=== PATIENT | female | born 1965 | race Two or more races ===

== ENCOUNTER → 2018-11-11 | Outpatient (REF) | payer OTHER ==
[2018-11-11 14:21] LABS: ALBUMIN 3.9 GM/DL (3.2-5.2); ALT/SGPT 21 U/L (12-78); BILIRUBIN,TOTAL 0.4 MG/DL (0.2-1.0); BLOOD UREA NITROGEN 12 MG/DL (7-18); CALCIUM LEVEL 9.3 MG/DL (8.5-10.1); CARBON DIOXIDE LEVEL 29 MEQ/L (21-32); CHLORIDE LEVEL 105 MEQ/L (98-107); CHOLESTEROL LEVEL 189 MG/DL (<200); CREATININE FOR GFR 0.76 MG/DL (0.55-1.30); GLOMERULAR FILTRATION RATE > 60.0 (>51); GLUCOSE, FASTING 82 MG/DL (70-100); HDL CHOLESTEROL 70 MG/DL (>40); LDL CHOLESTEROL 103 MG/DL (<100); NON-HDL-C 119 MG/DL; POTASSIUM SERUM 4.2 MEQ/L (3.5-5.1); SODIUM LEVEL 140 MEQ/L (136-145); TOTAL PROTEIN 6.9 GM/DL (6.4-8.2); TRIGLYCERIDES LEVEL 82 MG/DL (<150)
== END ==
LOC: M SFHCPLAZ 10:57
PROVIDERS: ATTEND Nurse Practitioner Adult Health
DX: E74.39 Other disorders of intestinal carbohydrate absorption (principal); E78.2 Mixed hyperlipidemia
CPT/HCPCS: 36415; 80053; 80061; 83036; 84443; G0463

== ENCOUNTER → 2018-12-27 | Outpatient (REF) | payer OTHER ==
[2018-12-27 17:15] LABS: BLOOD UREA NITROGEN 20 MG/DL (7-18); C REACTIVE PROTEIN QUANTITATIV 0.51 MG/DL (0.00-0.30); CREATININE FOR GFR 0.85 MG/DL (0.55-1.30); GLOMERULAR FILTRATION RATE > 60.0 (>51); RHEUMATOID FACTOR QUANT < 10.0 IU/ML (<15.0)
[2019-01-05 00:07] LABS: ANTINUCLEAR ANTIBODIES DIRECT Negative (Negative); HLA-B27 Negative (.)
== END ==
LOC: M LABDRAW1 15:26
PROVIDERS: ATTEND Physician Assistant
DX: M41.26 Other idiopathic scoliosis, lumbar region (principal)

== ENCOUNTER → 2019-02-15 | Outpatient (CLI) | payer OTHER ==
[~2019-02-15] MED LIST: ALPR0.25 PO; ATOR40TA75 PO; GABA-843 PO; LOSA50TA88 PO; MELO15TA28 PO; PANT40TA3 PO; ROPI0.253 PO; TIZA4CAP6 PO; VENL75CA47 PO; VENTAER INH
--- NOTE | 2019-02-15 17:15 | REP ---
CT lumbar spine: 02/15/2019. Indication: Low back pain. Myelopathy. Comparison: None. Technique: Unenhanced axial CT images of the lumbar spine were obtained with coronal and sagittal reconstructions provided. Findings: The patient is status post sacroiliac joint fixation. Stimulator lead is noted within the left aspect of the sacrum. There is no acute fracture, subluxation or dislocation. No significant spinal canal narrowing is detected by this technique. No lytic or blastic osseous lesions are present. The visualized paraspinal soft tissues are unremarkable with the exception of diffusely increased adipose tissue. Impression: No acute osseous injury of the lumbar spine. Electronically Signed by Gomez Rosa DO 02/15/2019 05:06 P
== END ==
LOC: M RAD 15:40
PROVIDERS: ATTEND Physician Assistant
DX: M47.817 Spondylosis without myelopathy or radiculopathy, lumbosacral region (principal)

== ENCOUNTER → 2019-02-23 | Day surgery (SDC) | payer OTHER ==
[~2019-02-23] VITALS: Ht 149.9 cm; Wt 82.0 kg
[~2019-02-23] MED LIST changes: +LIDOCAINE 1% MDV 20ML VIAL SQ PRN; +LR 1,000 ML IV ONE; +ceFAZolin SOD 2 GM in IV 1 EA IV ONE
[2019-02-23 06:23] VITALS: BP 106/77
== END | disposition home or self-care (01) ==
LOC: M SDC 06:03
PROVIDERS: ATTEND Orthopaedic Surgery
DX: M19.072 Primary osteoarthritis, left ankle and foot (principal); Z53.09 Procedure and treatment not carried out because of other contraindication

== ENCOUNTER 2019-03-21 05:59 | Day surgery (SDC) | payer OTHER ==
[~2019-03-21] VITALS: Ht 149.9 cm; Wt 83.5 kg
[~2019-03-21 05:59] MED LIST changes: -LIDOCAINE 1% MDV 20ML VIAL SQ PRN; -LR 1,000 ML IV ONE; -ceFAZolin SOD 2 GM in IV 1 EA IV ONE
[2019-03-21] MEDS ORDERED: EPINEPHrine INJ 1 MG/ML 1ML VIAL ONE (06:00)
[2019-03-21] MEDS ORDERED: ceFAZolin SOD 2 GM in IV 1 EA IV ONE (06:00)
[2019-03-21] MEDS ORDERED: ROPIvacaine 0.5% 30 ML INJECTION (J2795 PER 1MG) ONE (06:00)
[2019-03-21] MEDS ORDERED: LIDOCAINE 1% MDV 20ML VIAL ONE (06:00)
[2019-03-21] MEDS ORDERED: LR 1,000 ML IV ONE (06:00)
[2019-03-21] MEDS ORDERED: fentaNYL 100 MCG/2 ML INJECTION (J3010) As Ordered ONE (06:50)
[2019-03-21] MEDS ORDERED: MIDAZOLAM INJ 2 MG/2 ML VIAL (J2250) As Ordered ONE ×2 (06:50→07:16)
[2019-03-21] MEDS ORDERED: SCOPOLAMINE 1MG TRANSDERMAL PATCH As Ordered ONE (07:04)
[2019-03-21] MEDS ORDERED: BUPIVACAINE HCL 0.5% 30 ML VIAL As Ordered ONE (07:15)
[2019-03-21] MEDS ORDERED: fentaNYL 250 MCG/5 ML INJECTION (J3010) As Ordered ONE (07:16)
[2019-03-21] MEDS ORDERED: propofoL 200 MG/20 ML VIAL As Ordered ONE (07:16)
[2019-03-21] MEDS ORDERED: ROCURONIUM BROMIDE 50 MG/5 ML VIAL As Ordered ONE (07:17)
[2019-03-21] MEDS ORDERED: LIDOCAINE 2% INJ 100 MG/5 ML SDV (FOR ANES.) As Ordered ONE (07:17)
[2019-03-21] MEDS ORDERED: SCOPOLAMINE 1MG TRANSDERMAL PATCH TOP ONE (08:00)
[2019-03-21] MEDS ORDERED: LACTATED RINGER'S 1000 ML IV ONE (08:00)
[2019-03-21] MEDS ORDERED: METOCLOPRAMIDE INJ 10MG/2ML VIAL (J2765) As Ordered ONE (08:26)
[2019-03-21] MEDS ORDERED: ONDANSETRON 4MG/2ML VIAL (J2405) As Ordered ONE (08:27)
[2019-03-21] MEDS ORDERED: dexameTHASONE 4 MG/ML 1ML VIAL (J1100) As Ordered ONE (08:27)
[2019-03-21] MEDS ORDERED: MIDAZOLAM INJ 2 MG/2 ML VIAL (J2250) IV ONE (08:30)
[2019-03-21] MEDS ORDERED: fentaNYL 100 MCG/2 ML INJECTION (J3010) IV ONE (08:30)
[2019-03-21] MEDS ORDERED: ePHEDrine INJ 50 MG/ML VIAL IV ONE (08:30)
[2019-03-21] MEDS ORDERED: ePHEDrine SULFATE 25 MG/5 ML(5MG/ML) SYRINGE As Ordered ONE (08:30)
[2019-03-21] MEDS ORDERED: PHENYLEPHRINE INJ 10MG/ML VIAL (J2370) As Ordered ONE (08:31)
[2019-03-21] MEDS ORDERED: ACETAMINOPHEN 1000MG 100ML IV BTL (OFIRMEV) (J0131 PER 10MG) As Ordered ONE (09:32)
[2019-03-21] MEDS ORDERED: HYDROmorphone HCL 2 MG/ML 1ML VIAL (J1170) As Ordered ONE (09:38)
[2019-03-21] MEDS ORDERED: ESMOLOL INJ 100MG/10ML VIAL As Ordered ONE (10:31)
[2019-03-21] MEDS ORDERED: oxyCODONE 5MG TAB PO PRN (12:15)
[2019-03-21] MEDS ORDERED: MEPERIDINE INJ 25 MG/ML VIAL (J2175) IV PRN (12:15)
[2019-03-21] MEDS ORDERED: LR 1,000 ML IV SCH ×2 (12:15→12:30)
[2019-03-21] MEDS ORDERED: fentaNYL 100 MCG/2 ML INJECTION (J3010) IV PRN (12:15)
[2019-03-21] MEDS ORDERED: METOCLOPRAMIDE INJ 10MG/2ML VIAL (J2765) IV PRN (12:15)
[2019-03-21] MEDS ORDERED: ONDANSETRON 4MG/2ML VIAL (J2405) IV PRN (12:15)
--- NOTE | 2019-03-21 13:50 | REP ---
FOOT SERIES: NINE VIEWS. HISTORY: C-arm intraprocedural imaging: No comparison images. 78 seconds of fluoroscopy time is reported. FINDINGS: A sequence of nine last image hold, fluoroscopically obtained spot radiographs document midfoot arthrodesis of digits 2, 3, and 4. No laterality markers are visible. Electronically Signed by Mark Beyer MD 03/21/2019 02:50 P
[2019-03-21 15:05] VITALS: BP 131/72
--- NOTE | 2019-03-22 08:18 | RO ---
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 PROCEDURES: 1. Left 1st, 2nd, and 3rd tarsometatarsal joint arthrodesis. 2. Left calcaneal bone graft. 3. Use of the mini C-arm. SURGEON: Dr. Pearl Escobar PATIENT SERVICES REPRESENTATIVE: LAURIE Mancuso ANESTHESIA: General endotracheal with popliteal nerve block. ESTIMATED BLOOD LOSS: 75 mL. COMPLICATIONS: None. CONDITION: Stable in recovery. INDICATION: Corina Meraz is a 54-year-old female who has had longstanding pain due to left midfoot arthritis. She has failed conservative measures. The risks and benefits of surgery were discussed with the patient in detail and include but are not limited to infection, damage to nerves and blood vessels, continued pain and stiffness, need for additional procedures. Informed consent was obtained in the office. DESCRIPTION OF PROCEDURE: Patient was met in the preoperative holding area where her left lower extremity was marked as the correct operative site. She underwent a popliteal nerve block by the anesthesia team. She was then taken to the operating room and placed in the supine position on the operating room table. Bony prominences were well padded. A well-padded tourniquet was placed in the left upper thigh. Left lower extremity was prepped and draped in the normal sterile fashion. She received antibiotics within 60 minutes prior to incision. An official time-out was held where the correct patient, operative site and operative procedure were verified. The leg was exsanguinated with an Esmarch and tourniquet inflated to 250 mmHg. Using the patient's prior scar an incision was made over the first tarsometatarsal (TMT) joint. Care was taken to retract superficial nerves. Interval was developed between the extensor hallucis longus (EHL) and extensor digitorum brevis (EDB). There was fairly significant scar tissue and a large osteophyte. The osteophyte was taken down with a rongeur. The joint was accessed and a Hintermann was used to further gain access to the joint. There was moderate to severe arthritis throughout the joint with little remaining cartilage. This was debrided using a series of osteotomes and curets. Copious was performed. Following this, drilling was performed on both sides of the 1st TMT joint and using a 0.062 wire to gain access to the subchondral bone. After the 1st TMT was prepared, the 2nd TMT was also approached through the same incision. Care was taken to retract the neurovascular bundle throughout the case. The 2nd TMT was also approached. There was moderate arthritis throughout. It was similarly prepared in the same way as the 1st TMT joint with removal of all cartilage and drilling of the subchondral bone. At this point, a second incision was made over the 4th metatarsal and 4th TMT joint. The extensor digitorum longus (EDL) tendon was retracted and the 3rd TMT joint was accessed. Confirmation of the 3rd TMT joint was performed using mini C-arm. The joint was prepared in the same manner as the 1st and 2nd TMT joint. Next, I made an incision laterally over the calcaneal tuberosity. Snap and freer were used to protect the sural nerve and peroneal tendons. Using the 4-0 drill sleeve, I obtained approximately three good plugs of calcaneal bone graft. This was then placed into the 1st, 2nd, and 3rd TMT joint. Following this, the joints were all pinned in place using a 0.062 K-wire. Reduction was confirmed on AP oblique and lateral mini C-arm radiographs. Following this, I placed two 4.0 mm cross screws across the 1st TMT joint. At that time, I did drill in a cannulated manner but then placed solid screws. Placement of the screws was confirmed on AP, lateral, and oblique views. Next, I chose a 15 mm two-hole Claw plate from the [employer] set and this was placed across the 2nd TMT joint using 2.7 mm locking screws. Finally, I placed a 20 mm two-hole Claw plate at the 3rd TMT joint. Again this was secured using 2.7 mm locking screws. Position of the plates in the 2nd and 3rd TMT joint were confirmed on AP oblique and lateral views. Screw size was also confirmed. I did replace one screw at the middle cuneiform, which was slightly long. Then I compressed the 2nd and 3rd TMT joint using the plate compressor. There was good compression through the joints. Following this, copious irrigation was performed. Final x-rays were taken and found to be satisfactory in AP and lateral views. There was good compression across the 1st, 2nd, and 3rd TMT joints and hardware was in satisfactory alignment. At this point, the tourniquet was let down and hemostasis was maintained. Following this, I used a bur to bur two areas over the 1st TMT joint where remaining bone graft was placed. I then also used DBM putty over the dorsal aspect of the 1st, 2nd, and 3rd TMT joints as well. Subcutaneous tissues were closed using #3-0 Vicryl and skin was closed using #3-0 nylon. A well-padded sterile dressing was applied followed by a well-padded splint. Patient was extubated and transferred to the recovery room in stable condition. PLAN: Patient will be non-weightbearing in the left lower extremity for 6-8 weeks. She will be seen in a week for wound check. She will do strict elevation and will be on aspirin for deep venous thrombosis prophylaxis.
== END 2019-03-21 14:50 | disposition home or self-care (01) ==
LOC: M SDC 05:59
PROVIDERS: ATTEND Orthopaedic Surgery
DX: M19.072 Primary osteoarthritis, left ankle and foot (principal); I10 Essential (primary) hypertension; K21.9 Gastro-esophageal reflux disease without esophagitis; G25.81 Restless legs syndrome; E78.2 Mixed hyperlipidemia; R73.02 Impaired glucose tolerance (oral); F41.1 Generalized anxiety disorder; F32.9 Major depressive disorder, single episode, unspecified; J45.909 Unspecified asthma, uncomplicated; Z91.040 Latex allergy status; Z88.2 Allergy status to sulfonamides; Z88.5 Allergy status to narcotic agent; Z79.899 Other long term (current) drug therapy
CPT/HCPCS: 20900; 28730; 76000; C1713; C1762; J0131; J0690; J1100; J1170; J2250; J2370; J2405; J2765; J2795; J3010

== ENCOUNTER → 2019-04-20 | Outpatient (REF) | payer OTHER, MEDICAID | LOC: M LABDRAW1 10:33 | PROVIDERS: ATTEND Physical Medicine & Rehabilitation | DX: M47.897 Other spondylosis, lumbosacral region (principal) ==

== ENCOUNTER → 2019-05-17 | Outpatient (REF) | payer MEDICAID ==
[2019-05-18 10:53] LABS: RUBELLA IgG QUALITATIVE IMMUNE (IMMUNE)
== END ==
LOC: M SFHCPLAZ 11:29
PROVIDERS: ATTEND Nurse Practitioner Adult Health
DX: Z01.84 Encounter for antibody response examination (principal); Z78.9 Other specified health status

== ENCOUNTER → 2019-08-04 | Outpatient (CLI) | payer OTHER, MEDICAID ==
[~2019-08-04] MED LIST changes: +AMLO25TA PO; +ASPI81TA85 PO; +GABA800T4 PO; +MYRB50TA PO
--- NOTE | 2019-08-04 17:21 | REPVR ---
PROCEDURE INFORMATION: Exam: US Duplex Left Lower Extremity Veins, Limited Exam date and time: 08/04/2019 5:08 PM Age: 54 years old Clinical indication: Swelling (edema) of limb; Lower extremity, left; Additional info: Effusion, left foot TECHNIQUE: Imaging protocol: Real-time Duplex ultrasound of the Left Lower Extremity with 2-D cervantes scale, color Doppler flow and spectral waveform analysis with image documentation. Limited exam focused on the left lower extremity veins. COMPARISON: No relevant prior studies available. FINDINGS: Left deep veins: The common femoral, femoral, and popliteal veins are patent without thrombus. Normal Doppler waveforms. Normal compressibility and/or augmentation response. Left superficial veins: Unremarkable. Soft tissues: Unremarkable. IMPRESSION: No evidence of deep vein thrombosis. Electronically signed by: Jian Landaverde On 08/04/2019 17:21:18 PM
== END ==
LOC: M RAD 16:37
PROVIDERS: ATTEND Orthopaedic Surgery
DX: M25.475 Effusion, left foot (principal)

== ENCOUNTER → 2019-08-26 | Outpatient (CLI) | payer OTHER, MEDICAID ==
[2019-08-26 10:49] LABS: PLATELET COUNT, AUTOMATED 351 10^3/uL (150-450)
[2019-08-26 11:00] LABS: PROTHROMBIN TIME 12.9 SECONDS (11.8-14.0)
[2019-08-26 11:01] LABS: PARTIAL THROMBOPLASTIN TIME 31.2 SECONDS (25.0-38.4)
[2019-08-26 11:16] LABS: COLLAGEN EPINEPHRINE 151 SECONDS (74-162)
== END ==
LOC: M LAB 10:11
PROVIDERS: ATTEND Physician Assistant
DX: Z01.812 Encounter for preprocedural laboratory examination (principal); M47.27 Other spondylosis with radiculopathy, lumbosacral region; M51.36 Other intervertebral disc degeneration, lumbar region

== ENCOUNTER → 2019-08-30 | Outpatient (CLI) | payer OTHER, MEDICAID | LOC: M LABSMTC 10:49 | PROVIDERS: ATTEND Physical Medicine & Rehabilitation | DX: Z03.818 Encounter for observation for suspected exposure to other biological agents ruled out (principal); Z11.59 Encounter for screening for other viral diseases ==

== ENCOUNTER → 2019-11-19 | Outpatient (CLI) | payer MEDICAID ==
[~2019-11-19] MED LIST changes: -ASPI81TA85 PO; +ASPI81TA86 PO; +PANT40TA29 PO; -PANT40TA3 PO
== END ==
LOC: M LABSMTC 08:55
PROVIDERS: ATTEND Physical Medicine & Rehabilitation
DX: Z20.828 Contact with and (suspected) exposure to other viral communicable diseases (principal)

== ENCOUNTER → 2020-01-25 | Outpatient (CLI) | payer MEDICAID | LOC: M LABSMTC 10:08 | PROVIDERS: ATTEND Physical Medicine & Rehabilitation | DX: Z01.812 Encounter for preprocedural laboratory examination (principal); Z20.828 Contact with and (suspected) exposure to other viral communicable diseases ==

== ENCOUNTER 2020-05-21 10:43 | Emergency (ER) | payer MEDICAID, OTHER ==
[~2020-05-21] VITALS: Ht 149.9 cm; Wt 84.1 kg
[~2020-05-21 10:43] MED LIST changes: +GABA-282 PO; -GABA-843 PO
[2020-05-21] MEDS ORDERED: DULO1CAP6 PO (11:34)
[2020-05-21] MEDS ORDERED: PREG100C PO (11:34)
[2020-05-21 12:01] LABS: HEMATOCRIT 35.4 % (36.0-47.0); HEMOGLOBIN 11.6 g/dl (12.0-15.5); MEAN CORPUSCULAR HEMOGLOBIN 27.6 pg (27.0-33.0); MEAN CORPUSCULAR HGB CONC 32.8 g/dl (32.0-36.5); MEAN CORPUSCULAR VOLUME 84.3 fl (80.0-96.0); PLATELET COUNT, AUTOMATED 345 10^3/uL (150-450); WHITE BLOOD COUNT 6.3 10^3/uL (4.0-10.0)
[2020-05-21 12:13] LABS: INR 0.92; PROTHROMBIN TIME 12.5 SECONDS (12.5-14.3)
[2020-05-21 12:14] LABS: PARTIAL THROMBOPLASTIN TIME 32.6 SECONDS (24.2-38.5)
[2020-05-21 12:29] VITALS: BP 128/83
== END 2020-05-21 12:39 | disposition home or self-care (01) ==
LOC: M ED 10:43
DX: R22.43 Localized swelling, mass and lump, lower limb, bilateral (principal); S80.10XA Contusion of unspecified lower leg, initial encounter; X58.XXXA Exposure to other specified factors, initial encounter; Y92.9 Unspecified place or not applicable; Y93.9 Activity, unspecified; Y99.9 Unspecified external cause status; I10 Essential (primary) hypertension; K21.9 Gastro-esophageal reflux disease without esophagitis; F41.9 Anxiety disorder, unspecified; F33.9 Major depressive disorder, recurrent, unspecified; Z88.2 Allergy status to sulfonamides; Z88.6 Allergy status to analgesic agent; Z91.048 Other nonmedicinal substance allergy status; Z91.040 Latex allergy status; Z79.899 Other long term (current) drug therapy

== ENCOUNTER → 2020-08-13 | Outpatient (CLI) | payer OTHER, MEDICAID ==
[~2020-08-13] MED LIST changes: +DULO1CAP6 PO; +PREG100C PO
--- NOTE | 2020-08-13 21:03 | ECGEPIP ---
[facility] Test Date: 2020-08-13 Pat Name: KATIE WRIGHT Department: Room: - Gender: Female Drain Layer: efrain : 1965 Requested By: Latrice Presley Order Number: [id number] Reading MD: Charmaine Pink Measurements Intervals [place] Rate: 73 P: 47 [place]: 188 QRS: 20 QRSD: 90 T: 3 QT: 360 QTc: 396 Interpretive Statements Normal sinus rhythm NON-SPECIFIC STT ABNORMALITIES No prior Electronically Signed on 08-13-2020 21:03:10 EDT by Charmaine Pink
== END ==
LOC: M EKG 13:44
PROVIDERS: ATTEND Orthopaedic Surgery
DX: M19.011 Primary osteoarthritis, right shoulder (principal)

== ENCOUNTER → 2020-10-01 | Outpatient (CLI) | payer OTHER, MEDICAID ==
--- NOTE | 2020-10-02 21:55 | ECGEPIP ---
[facility] Test Date: 2020-10-01 Pat Name: KATIE WRIGHT Department: Room: - Gender: Female Director Of Payroll: [place] : 1965 Requested By: Latrice Presley Order Number: [id number] Reading MD: Lucio Chavarria Measurements Intervals [place] Rate: 83 P: 52 [place]: 186 QRS: 6 QRSD: 86 T: 23 QT: 366 QTc: 430 Interpretive Statements Normal sinus rhythm T wave abnormality, consider anterior ischemia Last tracing on 08/13/20 at 13:50 No remarkable changes Electronically Signed on 10-02-2020 21:55:18 EDT by Lucio Chavarria
== END ==
LOC: M EKG 16:36
PROVIDERS: ATTEND Orthopaedic Surgery
DX: M19.011 Primary osteoarthritis, right shoulder (principal)

== ENCOUNTER → 2021-01-16 | Outpatient (REF) | payer OTHER, MEDICAID | LOC: M SFHCPLAZ 16:44 | PROVIDERS: ATTEND Nurse Practitioner Adult Health | DX: L75.0 Bromhidrosis (principal) ==

== ENCOUNTER → 2021-05-17 | Outpatient (CLI) | payer MEDICARE, OTHER ==
[~2021-05-17] MED LIST changes: +LOSA50TA28 PO; -LOSA50TA88 PO
[2021-05-17 11:59] LABS: ALBUMIN 3.6 GM/DL (3.2-5.2); ALT/SGPT 23 U/L (12-78); BILIRUBIN,TOTAL 0.4 MG/DL (0.2-1.0); BLOOD UREA NITROGEN 18 MG/DL (7-18); CALCIUM LEVEL 8.9 MG/DL (8.5-10.1); CARBON DIOXIDE LEVEL 27 MEQ/L (21-32); CHLORIDE LEVEL 109 MEQ/L (98-107); CHOLESTEROL LEVEL 224 MG/DL (<200); CHOLESTEROL RISK RATIO 3.796 (<5); CREATININE FOR GFR 0.67 MG/DL (0.55-1.30); GLOMERULAR FILTRATION RATE > 60.0 (>51); GLUCOSE, FASTING 90 MG/DL (70-100); HDL CHOLESTEROL 59 MG/DL (>40); LDL CHOLESTEROL 148 MG/DL (<100); NON-HDL-C 165 MG/DL; POTASSIUM SERUM 4.5 MEQ/L (3.5-5.1); SODIUM LEVEL 141 MEQ/L (136-145); THYROID STIMULATING HORMONE 0.457 uIU/ML (0.358-3.740); TOTAL PROTEIN 6.8 GM/DL (6.4-8.2); TRIGLYCERIDES LEVEL 86 MG/DL (<150)
[2021-05-17 12:03] LABS: HEMOGLOBIN A1c 5.7 %
== END ==
LOC: M PLALAB 08:52
PROVIDERS: ATTEND Nurse Practitioner Adult Health
DX: E74.39 Other disorders of intestinal carbohydrate absorption (principal); E78.2 Mixed hyperlipidemia; Z13.29 Encounter for screening for other suspected endocrine disorder; I10 Essential (primary) hypertension; Z79.899 Other long term (current) drug therapy

== ENCOUNTER → 2021-08-14 | Outpatient (CLI) | payer MEDICARE, OTHER | LOC: M RAD 08:46 | PROVIDERS: ATTEND Registered Nurse Emergency | DX: T83.110A Breakdown (mechanical) of urinary electronic stimulator device, initial encounter (principal) ==

== ENCOUNTER 2021-08-24 22:46 | Emergency (ER) | payer MEDICARE, OTHER ==
[~2021-08-24] VITALS: Ht 149.9 cm; Wt 77.0 kg
[2021-08-25] MEDS ORDERED: KETOROLAC 30 MG/ML 1ML VIAL IM ONE (07:10)
[2021-08-25] MEDS ORDERED: methocarbamoL 500 MG TAB PO ONE (07:10)
[2021-08-25 09:10] VITALS: BP 118/79
== END 2021-08-25 09:11 | disposition home or self-care (01) ==
LOC: M ED 22:46
DX: S39.012A Strain of muscle, fascia and tendon of lower back, initial encounter (principal); W01.0XXA Fall on same level from slipping, tripping and stumbling without subsequent striking against object, initial encounter; M51.16 Intervertebral disc disorders with radiculopathy, lumbar region; E78.5 Hyperlipidemia, unspecified; F41.9 Anxiety disorder, unspecified; F32.A Depression, unspecified; J45.909 Unspecified asthma, uncomplicated; K21.9 Gastro-esophageal reflux disease without esophagitis; I10 Essential (primary) hypertension; Z79.51 Long term (current) use of inhaled steroids; Z79.899 Other long term (current) drug therapy; Z88.2 Allergy status to sulfonamides; Z91.048 Other nonmedicinal substance allergy status; Z91.040 Latex allergy status; Y93.01 Activity, walking, marching and hiking; Y99.9 Unspecified external cause status; Y92.410 Unspecified street and highway as the place of occurrence of the external cause
CPT/HCPCS: 72131; 96372; 99283; J1885

== ENCOUNTER → 2021-08-28 | Outpatient (CLI) | payer MEDICARE, OTHER | LOC: M PLALAB 15:55 | PROVIDERS: ATTEND Physician Assistant | DX: M25.532 Pain in left wrist (principal); W19.XXXA Unspecified fall, initial encounter; R07.81 Pleurodynia ==

== ENCOUNTER → 2022-04-16 | Outpatient (CLI) | payer MEDICARE ==
[2022-04-16 13:12] LABS: BASO % 0.5 % (0.0-1.0); EOS # 0.3 10^3/uL (0.0-0.5); EOS % 4.1 % (0.0-3.0); HEMATOCRIT 37.3 % (36.0-47.0); HEMOGLOBIN 12.1 g/dl (12.0-15.5); LYMPH # 3.5 10^3/uL (1.5-5.0); LYMPH % 47.6 % (24.0-44.0); MEAN CORPUSCULAR HEMOGLOBIN 27.8 pg (27.0-33.0); MEAN CORPUSCULAR HGB CONC 32.4 g/dl (32.0-36.5); MEAN CORPUSCULAR VOLUME 85.6 fl (80.0-96.0); MONO # 0.5 10^3/uL (0.0-0.8); MONO % 6.7 % (2.0-8.0); NEUTROPHILS % 40.8 % (36.0-66.0); PLATELET COUNT, AUTOMATED 413 10^3/uL (150-450); RED BLOOD COUNT 4.36 10^6/uL (4.00-5.40); WHITE BLOOD COUNT 7.4 10^3/uL (4.0-10.0)
[2022-04-16 13:21] LABS: HEMOGLOBIN A1c 5.4 % (4.0-6.0)
[2022-04-16 13:31] LABS: ERYTHROCYTE SEDIMENTATION RATE 11 mm/hr (0-30)
[2022-04-16 13:46] LABS: ALBUMIN 4.1 G/DL (3.2-5.2); ALKALINE PHOSPHATASE 115 U/L (46-116); ALT/SGPT 16 U/L (7.0-40); AST/SGOT 19 U/L (<34); BILIRUBIN,TOTAL 0.5 MG/DL (0.3-1.2); BLOOD UREA NITROGEN 13 MG/DL (9-23); CALCIUM LEVEL 9.3 MG/DL (8.5-10.1); CARBON DIOXIDE LEVEL 28 MMOL/L (20-31); CHLORIDE LEVEL 106 MMOL/L (98-107); CHOLESTEROL LEVEL 230 MG/DL (<200); CHOLESTEROL RISK RATIO 3.45 (<5); CREATININE FOR GFR 0.75 MG/DL (0.55-1.30); GLOMERULAR FILTRATION RATE > 60.0 (>51); GLUCOSE, FASTING 78 MG/DL (60-100); HDL CHOLESTEROL 66.5 MG/DL (>40); LDL CHOLESTEROL 144.7 MG/DL (<100); NON-HDL-C 164 MG/DL; POTASSIUM SERUM 4.5 MMOL/L (3.5-5.1); SODIUM LEVEL 140 MMOL/L (136-145); TRIGLYCERIDES LEVEL 94 MG/DL (<150)
[2022-04-16 13:47] LABS: RHEUMATOID FACTOR QUANT 4.2 IU/ML (<14)
[2022-04-17 23:07] LABS: ANA (HEP2) Positive (.); CYCLIC CITRULLINATED PEPTIDE 7 units (0-19)
== END ==
LOC: M PLALAB 10:42
PROVIDERS: ATTEND Physician Assistant
DX: L30.9 Dermatitis, unspecified (principal); Z20.818 Contact with and (suspected) exposure to other bacterial communicable diseases; L40.9 Psoriasis, unspecified; M25.541 Pain in joints of right hand; M25.542 Pain in joints of left hand; E78.2 Mixed hyperlipidemia

== ENCOUNTER → 2022-04-22 | Outpatient (CLI) | payer MEDICARE | LOC: M PAIN 11:15 | PROVIDERS: ATTEND Nurse Practitioner Family | DX: M51.16 Intervertebral disc disorders with radiculopathy, lumbar region (principal); G89.29 Other chronic pain; G25.81 Restless legs syndrome; K21.9 Gastro-esophageal reflux disease without esophagitis; Z86.59 Personal history of other mental and behavioral disorders; Z88.2 Allergy status to sulfonamides; Z88.5 Allergy status to narcotic agent; Z91.040 Latex allergy status; Z91.09 Other allergy status, other than to drugs and biological substances; E66.01 Morbid (severe) obesity due to excess calories; Z68.41 Body mass index [BMI] 40.0-44.9, adult; Z79.899 Other long term (current) drug therapy ==

== ENCOUNTER → 2022-05-30 | Outpatient (CLI) | payer MEDICARE | LOC: M LABSMTC 09:06 | PROVIDERS: ATTEND Anesthesiology | DX: Z20.828 Contact with and (suspected) exposure to other viral communicable diseases (principal); Z11.52 Encounter for screening for COVID-19 ==

== ENCOUNTER → 2022-06-03 | Outpatient (CLI) | payer MEDICARE | LOC: M PAIN 09:15 | PROVIDERS: ATTEND Anesthesiology | DX: M51.17 Intervertebral disc disorders with radiculopathy, lumbosacral region (principal); M48.061 Spinal stenosis, lumbar region without neurogenic claudication; M43.10 Spondylolisthesis, site unspecified; G89.29 Other chronic pain; G25.81 Restless legs syndrome; K21.9 Gastro-esophageal reflux disease without esophagitis; Z86.59 Personal history of other mental and behavioral disorders; Z88.2 Allergy status to sulfonamides; Z88.5 Allergy status to narcotic agent; Z91.040 Latex allergy status; Z91.09 Other allergy status, other than to drugs and biological substances; E66.01 Morbid (severe) obesity due to excess calories; Z68.41 Body mass index [BMI] 40.0-44.9, adult; Z79.899 Other long term (current) drug therapy ==

== ENCOUNTER → 2022-06-19 | Outpatient (CLI) | payer MEDICARE ==
[2022-06-20 06:08] LABS: RUBEOLA IgG ANTIBODY >300.0 AU/mL (Immune >16.4)
== END ==
LOC: M LAB 11:21
PROVIDERS: ATTEND Nurse Practitioner Adult Health
DX: Z01.84 Encounter for antibody response examination (principal)

== ENCOUNTER → 2022-06-19 | Outpatient (REF) | payer MEDICARE | LOC: M SFHCPLAZ 09:33 | PROVIDERS: ATTEND Nurse Practitioner Adult Health | DX: Z53.9 Procedure and treatment not carried out, unspecified reason (principal) ==